=== PATIENT | female | born 2000 | race African-American/Black ===

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

== ENCOUNTER 2021-04-28 20:25 | Inpatient (IN) ==
[2021-04-28] MEDS ORDERED: ONDANSETRON 4 MG/2 ML VIAL IV PRN (20:48)
[2021-04-28] MEDS ORDERED: MEPERIDINE 50 MG/1 ML VIAL IV PRN (20:48)
[2021-04-28 21:17] LABS: Basophils % 0.2 % (0.0-0.8); Eosinophils # 0.1 10*3/uL (0.0-0.87); Hematocrit 32.6 VOL% (35.7-47.0); Hemoglobin 10.7 GM/DL (12.0-16.0); Immature Granulocytes % 0.7 %; Immature Granulocytes Absolute 0.09 #; Lymphocytes # 2.4 10*3/uL (1.4-4.0); Lymphocytes % 18.5 % (21.3-54.2); Mean Corpuscular HGB Conc 32.8 GM/DL (32-36); Mean Platelet Volume 11.4 FL (9.6-12.0); Monocytes % 7.6 % (1.7-12.7); Platelet Count 272 T/CUMM (130-400); Red Blood Count 3.79 MC/CUMM (3.8-5.5); Red Cell Distribution Width 14.1 % (9.3-17.3); White Blood Count 13.1 T/CUMM (4-12)
[2021-04-28] MEDS ORDERED: AMPICILLIN INJ 2,000 MG in SODIUM CHLORIDE 0.9% 100 ML IV ONE (23:41)
[2021-04-29] MEDS: BUTORPHANOL 2 MG/ML VIAL IV PRN ×3 (00:22→06:43)
[2021-04-29] MEDS: LACTATED RINGERS 1,000 ML IV SCH ×2 (00:27→06:41)
[2021-04-29] MEDS: AMPICILLIN INJ 1,000 MG in SODIUM CHLORIDE 0.9% 100 ML IV SCH ×4 (04:11→16:35)
[2021-04-29] MEDS ORDERED: ePHEDrine 50 MG/ML VIAL IV PRN (07:23)
[2021-04-29] MEDS ORDERED: diphenhydrAMINE 50 MG/1 ML VIAL IV PRN ×2 (07:23)
[2021-04-29] MEDS ORDERED: LACTATED RINGERS 1,000 ML IV ONE (07:23)
[2021-04-29] MEDS ORDERED: FAMOTIDINE 20 MG/2 ML VIAL IV ONE (07:23)
[2021-04-29] MEDS ORDERED: CITRIC ACID/SODIUM CITRATE 30 ML UDCUP PO ONE (07:23)
[2021-04-29] MEDS ORDERED: NALOXONE 0.4 MG/ML VIAL IV PRN (07:23)
[2021-04-29] MEDS ORDERED: fentaNYL 2 MCG/ROPIV 0.2% EPID 100 ML EPIDURAL SCH (07:30)
[2021-04-29] MEDS ORDERED: OXYTOCIN/LR 20 UNIT/1,000 ML BAG IV ONE (08:37)
[2021-04-29] MEDS: OXYTOCIN/LR 20 UNIT/1,000 ML BAG IV SCH ×2 (11:07→19:52)
[2021-04-29 11:59] LABS: Bilirubin,Urine Negative (Negative); Blood, Urine Small mg/dL (Negative); Glucose,Urine (UA) Negative (Negative); Ketones,Urine 20 mg/dL (Negative); Nitrite,Urine Negative (Negative); Protein,Urine Negative; RBC,Urine 1 /HPF (0-4); Squamous Epithelial Cell,Urine Occasional /HPF (0-10); Urine Appearance CLEAR (Clear); Urine Color Yellow (Yellow); Urine Specific Gravity 1.006 (1.001-1.035); Urine Urobilinogen < 2.0 EU/DL (0.2-1.0)
[2021-04-29 13:29] LABS: RPR Confirm - Less than 1 yr REACTIVE (Nonreactive)
[2021-04-29] MEDS ORDERED: miSOPROStoL 200 MCG TABLET ONE (14:30)
[2021-04-29] MEDS ORDERED: CARBOPROST TROMETHAMINE 250 MCG/ML AMP IM ONE (14:31)
[2021-04-29] MEDS ORDERED: OXYTOCIN/LR 0 UNIT/0 ML BAG IV ONE (14:31)
[2021-04-29] MEDS ORDERED: METHYLERGONOVINE 0.2 MG/1 ML AMP ONE (14:31)
[2021-04-29] MEDS ORDERED: TRANEXAMIC ACID 1,000 MG/10 ML VIAL ONE (14:31)
[2021-04-29] MEDS ORDERED: SODIUM CHLORIDE 0.9% 0 ML IV ONE (14:32)
[2021-04-29 17:30] LABS: Cord Arterial Blood HCO3 22.1 MMOL/L
[2021-04-29 17:33] LABS: Cord Venous Blood HCO3 22.5 MMOL/L; Cord Venous Blood PO2 35.3
[2021-04-29] MEDS ORDERED: ACETAMINOPHEN 500 MG TABLET PO ONE (19:30)
[2021-04-29] MEDS ORDERED: ACETAMINOPHEN 500 MG TABLET PO PRN (21:47)
[2021-04-29] MEDS ORDERED: ONDANSETRON 4 MG/2 ML VIAL IV PRN (21:47)
[2021-04-29] MEDS ORDERED: LACTATED RINGERS 1,000 ML IV SCH (21:47)
[2021-04-29] MEDS ORDERED: BISACODYL 10 MG SUPP RECTAL PRN (21:47)
[2021-04-29] MEDS ORDERED: MAGNESIUM HYDROXIDE SUSP 30 ML UDCUP PO PRN (21:47)
[2021-04-29] MEDS: DOCUSATE SODIUM 100 MG CAPSULE PO SCH (21:58)
[2021-04-30 06:53] LABS: Basophils % 0.1 % (0.0-0.8); Eosinophils # 0.2 10*3/uL (0.0-0.87); Hematocrit 32.2 VOL% (35.7-47.0); Hemoglobin 10.4 GM/DL (12.0-16.0); Immature Granulocytes % 0.5 %; Immature Granulocytes Absolute 0.08 #; Lymphocytes # 2.9 10*3/uL (1.4-4.0); Mean Corpuscular HGB Conc 32.3 GM/DL (32-36); Mean Corpuscular Volume 85.6 FL (87-102); Mean Platelet Volume 11.5 FL (9.6-12.0); Monocytes % 11.3 % (1.7-12.7); Neutrophils % 68.1 % (38.7-73.9); Platelet Count 225 T/CUMM (130-400); Red Blood Count 3.76 MC/CUMM (3.8-5.5); Red Cell Distribution Width 13.9 % (9.3-17.3); White Blood Count 15.5 T/CUMM (4-12)
[2021-04-30] MEDS: DOCUSATE SODIUM 100 MG CAPSULE PO SCH ×2 (09:35→20:29)
[2021-04-30] MEDS: MULTIVITAMIN (PRENATAL) TABLET PO SCH (09:36)
[2021-04-30] MEDS: IBUPROFEN 800 MG TABLET PO PRN (20:29)
[2021-05-01] MEDS: IBUPROFEN 800 MG TABLET PO PRN (04:13)
[2021-05-01 07:45] VITALS: BP 109/73
[2021-05-01] MEDS: MULTIVITAMIN (PRENATAL) TABLET PO SCH (09:35)
[2021-05-01] MEDS: DOCUSATE SODIUM 100 MG CAPSULE PO SCH (09:35)
== END 2021-05-01 12:45 | disposition home or self-care (01) | DRG 560 ==
LOC: N.LDOUT 20:25 → N.LD 20:30 → N.OB 04-29 21:42
PROVIDERS: ADMIT Obstetrics & Gynecology; ATTEND Obstetrics & Gynecology